=== PATIENT | male | born 1975 | race Caucasian/White ===

== ENCOUNTER 2024-08-24 15:41 | Emergency (ER) | payer SELFPAY ==
--- NOTE | 2024-08-24 16:00 | NUR.NOTE ---
Nursing Note: Pt arrived via EMS for flank pain, states his pain has completely resolved en route by EMS. Calling family now for a ride because he doesnt think he needs to stay
--- NOTE | 2024-08-24 16:12 | NUR.NOTE ---
Nursing Note: Pt decided he did not want to be triaged nor be a patient here. Pt called family and left the ER without being seen
== END 2024-08-24 16:12 | disposition left against medical advice (07) ==
LOC: ER 16:28
DX: Z53.21 Procedure and treatment not carried out due to patient leaving prior to being seen by health care provider (principal)

== ENCOUNTER 2024-09-01 17:14 | Outpatient (REF) | payer SELFPAY ==
[2024-09-01 21:43] LABS: Bilirubin Negative (Negative); Blood Trace-intact (Negative); Clarity Clear (Clear); Glucose Negative (Negative); Ketones Negative (Negative); Leukocyte Esterase Negative (Negative); Nitrite Negative (Negative); Urobilinogen 0.2 mg/dL (Up to 0.2)
[2024-09-01 21:57] LABS: Bacteria Negative HPF (Negative); Casts Negative LPF (Negative); Crystals Negative HPF (Negative); Epithelial Cells Rare HPF (Negative); Mucus Negative (Negative); WBC Negative HPF (0-5)
[2024-09-01 21:58] LABS: C & S Indicated? No
== END 2024-09-01 17:15 | disposition home or self-care (01) ==
LOC: LBN 17:14
PROVIDERS: Visit Provider Nurse Practitioner Family
DX: R39.9 Unspecified symptoms and signs involving the genitourinary system (principal); N39.0 Urinary tract infection, site not specified; N20.0 Calculus of kidney
CPT/HCPCS: 81003; 81015; 87086

== ENCOUNTER 2024-09-06 16:22 | Outpatient (CLI) | payer SELFPAY ==
[2024-09-07 18:45] LABS: PSA, Screening 0.5 ng/mL (<=2.5)
== END 2024-09-06 16:23 | disposition home or self-care (01) ==
LOC: LBO 16:24
PROVIDERS: Visit Provider Nurse Practitioner Family
DX: R39.9 Unspecified symptoms and signs involving the genitourinary system (principal)
CPT/HCPCS: 36415; 84153